=== PATIENT | female | born 1950 | race Hispanic/Latino ===

== ENCOUNTER 2017-08-19 15:07 | Inpatient (IN) | payer MEDICARE ==
[~2017-08-19] VITALS: Ht 154.9 cm; Wt 139.8 kg
[~2017-08-19 15:07] MED LIST: ASPIRIN PO; CETRIZINE PO; DULO60CA44 PO; FISH1CAP27 PO; FURO20TA4 PO; INSULIN LEVIMIR; INSULIN REGULAR; LOSA1TAB37 PO; MAGNESIUM CHLORIDE; METF10004 PO; OMEP20CA10 PO
[2017-08-19] MEDS ORDERED: ONDANSETRON HCL 4 MG/2 ML VIAL ONE (15:41)
[2017-08-19 16:03] LABS: BASOPHILS % (AUTO) 0.2 % (0.0-5.0); EOSINOPHILS % (AUTO) 0.5 % (0.0-8.0); HEMATOCRIT 31.8 % (36-48); LYMPHOCYTES % (AUTO) 6.6 % (21.0-51.0); MEAN CORPUSCULAR HEMOGLOBIN 29.1 pg (27.0-33.0); MEAN CORPUSCULAR HGB CONC 33.6 g/dL (32.0-36.0); MEAN CORPUSCULAR VOLUME 86.6 fL (79-99); MONOCYTES % (AUTO) 2.7 % (3.0-13.0); PLATELET COUNT (AUTO) 391 K/uL (130-400); RED BLOOD CELL COUNT(AUTO) 3.67 MIL/uL (4.00-5.50); RED CELL DISTRIBUTION WIDTH 18.2 % (11.0-15.5); WHITE BLOOD COUNT (AUTO) 16.4 K/uL (4.8-10.8)
[2017-08-19 16:08] LABS: CARBON DIOXIDE 27 mmol/L (21-32); CHLORIDE 101 mmol/L (101-111); CREATININE 0.9 mg/dL (0.5-1.5); GLOMERULAR FILTR. RATE CALC 66 mL/min (>60); GLUCOSE,RANDOM 189 mg/dL (70-105); POTASSIUM 4.1 mmol/L (3.5-5.1); SODIUM SERUM 138 mmol/L (136-145); UREA NITROGEN, BLOOD 16 mg/dL (7-18)
[2017-08-19 16:17] LABS: APPEARANCE,URINE Clear (CLEAR); BILIRUBIN,URINE Negative (NEGATIVE); COLOR,URINE Dark Yellow (YELLOW); GLUCOSE, URINE (UA) Negative (NEGATIVE); KETONES,URINE Negative (NEGATIVE); LEUKOCYTE ESTERASE ,URINE Trace (NEGATIVE); NITRATE,URINE Negative (NEGATIVE); OCCULT BLOOD,URINE Negative (NEGATIVE); PROTEIN,URINE Negative (NEGATIVE)
[2017-08-19 16:21] LABS: ALANINE AMINOTRANSFERASE 56 U/L (12-78); ALBUMIN 3.5 g/dL (3.5-5.0); ASPARTATE AMINOTRANSFERASE 82 U/L (10-37); BILIRUBIN,TOTAL 0.8 mg/dL (0.2-1.0); CREATINE KINASE MB < 0.5 ng/mL (0.5-3.6); CREATINE KINASE, TOTAL 101 U/L (21-232); LIPASE 85 U/L (114-286); TOTAL PROTEIN, SERUM 7.5 g/dL (6.0-8.3)
[2017-08-19 16:29] LABS: BACTERIA,URINE Few /HPF (None Seen); RBC,URINE None Seen /HPF (0-1); WBC,URINE 0-1 /HPF (0-1)
[2017-08-19] MEDS ORDERED: SODIUM CHLORIDE 0.9% 1000ML 1,000 ML IV ONE ×3 (16:29→23:41)
[2017-08-19] MEDS ORDERED: MAG HYDROX/AL HYDROX/SIMETH ES 30 ML SUSP UDCUP ONE (16:29)
[2017-08-19] MEDS ORDERED: LIDOCAINE HCL 2% VISCOUS 15 ML UDCUP ONE (16:29)
[2017-08-19] MEDS ORDERED: MORPHINE SULFATE 4 MG/1ML SYG ONE (16:29)
[2017-08-19] MEDS ORDERED: VANCOMYCIN 1GM+NS 250ML 250 ML IV ONE (17:16)
[2017-08-19] MEDS ORDERED: MEROPENEM 1 GM VIAL ONE (17:16)
[2017-08-19] MEDS ORDERED: SODIUM CHLORIDE 0.9% 1000ML 2,000 ML IV ONE (17:16)
[2017-08-19] MEDS ORDERED: ACETAMINOPHEN EXTRA STRENGTH 500 MG TABLET ONE (17:17)
[2017-08-19 17:27] LABS: INR 0.96 (0.85-1.15); PARTIAL THROMBOPLASTIN TIME 27.3 SEC (26.3-35.5); PROTHROMBIN TIME 10.1 SEC (9.6-11.6)
[2017-08-19] MEDS ORDERED: IOPAMIDOL-370 75 ML VIAL IV ONE (17:56)
[2017-08-19] MEDS ORDERED: MORPHINE SULFATE 2 MG/ML 1ML SYG IVP PRN (21:45)
[2017-08-19] MEDS: SODIUM CHLORIDE 0.9% 1000ML 1,000 ML IV SCH (21:45)
[2017-08-19] MEDS: CEFTRIAXONE SODIUM 1 GM IVP SCH (22:00)
[2017-08-20] MEDS ORDERED: SODIUM CHLORIDE 0.9% 1000ML 1,000 ML IV SCH (01:52)
[2017-08-20] MEDS ORDERED: HYDRALAZINE HCL 20 MG/ML VIAL IV PRN (02:00)
[2017-08-20] MEDS ORDERED: ACETAMINOPHEN 325 MG TAB PO PRN (02:00)
[2017-08-20] MEDS ORDERED: ONDANSETRON HCL 4 MG/2 ML VIAL IV PRN (02:00)
[2017-08-20] MEDS: SODIUM CHLORIDE 0.9% 1000ML 1,000 ML IV SCH ×3 (05:45→21:45)
[2017-08-20 06:36] LABS: BASOPHILS % (AUTO) 0.1 % (0.0-5.0); HEMATOCRIT 29.5 % (36-48); LYMPHOCYTES % (AUTO) 1.3 % (21.0-51.0); MEAN CORPUSCULAR HEMOGLOBIN 27.8 pg (27.0-33.0); MEAN CORPUSCULAR HGB CONC 32.6 g/dL (32.0-36.0); MEAN CORPUSCULAR VOLUME 85.3 fL (79-99); MONOCYTES % (AUTO) 2.3 % (3.0-13.0); NEUTROPHILS % (AUTO) 96.3 % (40.0-77.0); PLATELET COUNT (AUTO) 330 K/uL (130-400); RED BLOOD CELL COUNT(AUTO) 3.45 MIL/uL (4.00-5.50); RED CELL DISTRIBUTION WIDTH 18.2 % (11.0-15.5); WHITE BLOOD COUNT (AUTO) 20.5 K/uL (4.8-10.8)
[2017-08-20 06:47] LABS: CREATININE 0.9 mg/dL (0.5-1.5)
[2017-08-20] MEDS ORDERED: SODIUM CHLORIDE 0.9% 1000ML 1,000 ML IV ONE ×2 (08:01→14:28)
[2017-08-20] MEDS ORDERED: CLON0.5T4 PO (08:33)
[2017-08-20] MEDS ORDERED: TYL3 PO (08:33)
[2017-08-20] MEDS ORDERED: METH2.5T6 PO (08:33)
[2017-08-20] MEDS ORDERED: DOCU-132 PO (08:33)
[2017-08-20] MEDS ORDERED: LOSA25TA21 PO (08:33)
[2017-08-20] MEDS ORDERED: FOLI1TAB15 PO (08:33)
[2017-08-20] MEDS ORDERED: FERS325 PO (08:33)
[2017-08-20] MEDS ORDERED: ATOR40TA69 PO (08:33)
[2017-08-20 08:52] LABS: BASOPHILS % (AUTO) 0.2 % (0.0-5.0); HEMATOCRIT 31.6 % (36-48); LYMPHOCYTES % (AUTO) 2.1 % (21.0-51.0); MEAN CORPUSCULAR HEMOGLOBIN 27.6 pg (27.0-33.0); MEAN CORPUSCULAR VOLUME 86.2 fL (79-99); MONOCYTES % (AUTO) 1.6 % (3.0-13.0); NEUTROPHILS % (AUTO) 96.1 % (40.0-77.0); PLATELET COUNT (AUTO) 317 K/uL (130-400); RED BLOOD CELL COUNT(AUTO) 3.66 MIL/uL (4.00-5.50); RED CELL DISTRIBUTION WIDTH 18.4 % (11.0-15.5); WHITE BLOOD COUNT (AUTO) 19.8 K/uL (4.8-10.8)
[2017-08-20] MEDS ORDERED: CEFTRIAXONE 1GM/D5W 50ML 50 ML IV SCH (09:00)
[2017-08-20] MEDS ORDERED: CEFTRIAXONE SODIUM 1 GM ONE (09:02)
[2017-08-20] MEDS ORDERED: FAMOTIDINE/PF 20 MG/2 ML VIAL IV ONE (09:03)
[2017-08-20] MEDS ORDERED: ACETAMINOPHEN 325 MG TAB ONE ×2 (09:09→14:10)
[2017-08-20 10:01] LABS: B-TYPE NATRIURETIC PEPTIDE 52 pg/mL (0-100)
[2017-08-20 16:00] VITALS: BP 104/50
[2017-08-20 19:00] VITALS: BP 141/72
[2017-08-20] MEDS: FAMOTIDINE/PF 20 MG/2 ML VIAL IV SCH (21:00)
[2017-08-20 23:00] VITALS: BP 132/65
[2017-08-21 03:00] VITALS: BP 132/65
[2017-08-21 04:53] LABS: MEAN CORPUSCULAR HEMOGLOBIN 28.7 pg (27.0-33.0); MEAN CORPUSCULAR HGB CONC 33.5 g/dL (32.0-36.0); MEAN CORPUSCULAR VOLUME 85.6 fL (79-99); PLATELET COUNT (AUTO) 294 K/uL (130-400); RED BLOOD CELL COUNT(AUTO) 3.39 MIL/uL (4.00-5.50); RED CELL DISTRIBUTION WIDTH 18.6 % (11.0-15.5); WHITE BLOOD COUNT (AUTO) 11.2 K/uL (4.8-10.8)
[2017-08-21 05:07] LABS: CREATININE 0.9 mg/dL (0.5-1.5); POTASSIUM 3.8 mmol/L (3.5-5.1)
[2017-08-21 05:10] LABS: BAND NEUTROPHILS % (MANUAL) 9 % (0-2); LYMPHOCYTES % (MANUAL) 13 % (22-44); MAN.DIFF COMMENT-IMPRESSION MANUAL DIFFERENTIAL; SEGMENTED NEUTROPHILS % 78 % (40-70)
[2017-08-21 05:11] LABS: PLATELET MORPHOLOGY COMMENT ADEQUATE
[2017-08-21] MEDS: SODIUM CHLORIDE 0.9% 1000ML 1,000 ML IV SCH ×3 (05:45→21:09)
[2017-08-21 08:00] VITALS: BP 148/62
[2017-08-21] MEDS: FAMOTIDINE/PF 20 MG/2 ML VIAL IV SCH ×2 (08:10→20:40)
[2017-08-21] MEDS ORDERED: FUROSEMIDE 10 MG/ML 4ML VIAL IV SCH (11:45)
[2017-08-21 12:00] VITALS: BP 135/62
[2017-08-21] MEDS ORDERED: MAG HYDROX/AL HYDROX/SIMETH ES 30 ML SUSP UDCUP PO SCH (12:15)
[2017-08-21] MEDS ORDERED: KETOROLAC TROMETHAMINE 30MG/ML IV SCH (12:15)
[2017-08-21] MEDS: IPRATROPIUM/ALBUTEROL SULFATE 3 ML SOLUTION IH PRN ×3 (13:48→23:33)
[2017-08-21 16:00] VITALS: BP 140/74
[2017-08-21] MEDS: CEFTRIAXONE SODIUM 1 GM IVP SCH (16:14)
[2017-08-21] MEDS: CEFTRIAXONE SODIUM 1 GM IV SCH (17:09)
[2017-08-21 19:20] VITALS: BP 153/65
[2017-08-22] VITALS (7 sets, daily range): BP systolic 120–162; BP diastolic 57–86
[2017-08-22] MEDS: CEFTRIAXONE SODIUM 1 GM IV SCH ×2 (04:14→16:35)
[2017-08-22] MEDS: SODIUM CHLORIDE 0.9% 1000ML 1,000 ML IV SCH ×2 (05:45→10:32)
[2017-08-22] MEDS: FAMOTIDINE/PF 20 MG/2 ML VIAL IV SCH ×2 (10:21→21:18)
[2017-08-22] MEDS: PANTOPRAZOLE SODIUM 40 MG TABLET.DR PO SCH (10:21)
[2017-08-22] MEDS: FUROSEMIDE 10 MG/ML 2ML VIAL IV SCH (12:56)
[2017-08-22] MEDS: INSULIN HUMULIN R 100 UNIT/ML 3ML SQ SCH ×2 (16:56→21:18)
[2017-08-22] MEDS: IPRATROPIUM/ALBUTEROL SULFATE 3 ML SOLUTION IH PRN ×2 (19:53→23:42)
[2017-08-22] MEDS: INSULIN GLARGINE 100 UNITS/ML 10 ML VIAL SQ SCH (21:16)
[2017-08-22] MEDS: DOCUSATE SODIUM 100 MG CAP PO SCH (21:18)
[2017-08-22] MEDS: ACETAMINOPHEN-CODEINE 300/30MG TAB PO SCH (21:33)
[2017-08-23] MEDS: FUROSEMIDE 10 MG/ML 2ML VIAL IV SCH ×2 (01:00→12:35)
[2017-08-23 04:00] VITALS: BP 134/71
[2017-08-23] MEDS: CEFTRIAXONE SODIUM 1 GM IV SCH ×2 (05:10→16:24)
[2017-08-23] MEDS: INSULIN HUMULIN R 100 UNIT/ML 3ML SQ SCH ×4 (06:10→21:14)
[2017-08-23] MEDS: PANTOPRAZOLE SODIUM 40 MG TABLET.DR PO SCH (06:38)
[2017-08-23] MEDS: IPRATROPIUM/ALBUTEROL SULFATE 3 ML SOLUTION IH PRN ×3 (06:38→18:41)
[2017-08-23 08:00] VITALS: BP 136/53
[2017-08-23] MEDS: FAMOTIDINE/PF 20 MG/2 ML VIAL IV SCH ×2 (08:49→19:50)
[2017-08-23] MEDS: LOSARTAN 50 MG TABLET PO SCH (08:49)
[2017-08-23] MEDS: DOCUSATE SODIUM 100 MG CAP PO SCH ×2 (08:49→19:50)
[2017-08-23] MEDS: FOLIC ACID 1 MG TABLET PO SCH (08:49)
[2017-08-23] MEDS: DULOXETINE HCL 30 MG CAP PO SCH (08:49)
[2017-08-23] MEDS: ACETAMINOPHEN-CODEINE 300/30MG TAB PO SCH ×2 (08:50→19:51)
[2017-08-23] MEDS: CLONAZEPAM 0.5 MG TABLET PO SCH (08:50)
[2017-08-23] MEDS: FERROUS FUMARATE 324 MG TABLET PO SCH (08:57)
[2017-08-23 11:35] VITALS: BP 142/91
[2017-08-23 16:00] VITALS: BP 146/67
[2017-08-23 19:00] VITALS: BP 156/76
[2017-08-23] MEDS: ATORVASTATIN CALCIUM 40 MG TABLET PO SCH (19:50)
[2017-08-23] MEDS: INSULIN GLARGINE 100 UNITS/ML 10 ML VIAL SQ SCH (21:15)
[2017-08-24] VITALS (7 sets, daily range): BP systolic 105–149; BP diastolic 54–78
[2017-08-24] MEDS: FUROSEMIDE 10 MG/ML 2ML VIAL IV SCH ×2 (00:23→12:15)
[2017-08-24] MEDS: CEFTRIAXONE SODIUM 1 GM IV SCH ×2 (04:47→12:15)
[2017-08-24 05:33] LABS: BASOPHILS % (AUTO) 0.6 % (0.0-5.0); EOSINOPHILS % (AUTO) 2.1 % (0.0-8.0); HEMATOCRIT 30.1 % (36-48); LYMPHOCYTES % (AUTO) 11.9 % (21.0-51.0); MEAN CORPUSCULAR HEMOGLOBIN 27.9 pg (27.0-33.0); MEAN CORPUSCULAR HGB CONC 33.4 g/dL (32.0-36.0); MEAN CORPUSCULAR VOLUME 83.4 fL (79-99); MONOCYTES % (AUTO) 9.7 % (3.0-13.0); NEUTROPHILS % (AUTO) 75.7 % (40.0-77.0); PLATELET COUNT (AUTO) 306 K/uL (130-400); RED BLOOD CELL COUNT(AUTO) 3.61 MIL/uL (4.00-5.50); RED CELL DISTRIBUTION WIDTH 18.3 % (11.0-15.5); WHITE BLOOD COUNT (AUTO) 8.8 K/uL (4.8-10.8)
[2017-08-24 06:03] LABS: ALBUMIN 2.5 g/dL (3.5-5.0); CREATININE 0.8 mg/dL (0.5-1.5); TOTAL PROTEIN, SERUM 6.5 g/dL (6.0-8.3)
[2017-08-24 06:10] LABS: POTASSIUM 2.7 mmol/L (3.5-5.1)
[2017-08-24] MEDS ORDERED: POTASSIUM CHLORIDE 20 MEQ ERTAB PO ONE (06:20)
[2017-08-24] MEDS ORDERED: LIDOCAINE HCL-MPF 1% 2ML VIAL ONE (06:20)
[2017-08-24] MEDS ORDERED: POTASSIUM CHLORIDE 20MEQ/100ML 100 ML IV ONE (06:21)
[2017-08-24] MEDS ORDERED: POTASSIUM CHLORIDE 20 MEQ ERTAB PO PRN (06:30)
[2017-08-24] MEDS: LIDOCAINE HCL-MPF 1% 2ML VIAL IVP PRN (06:32)
[2017-08-24] MEDS: POTASSIUM CHLORIDE 20MEQ/100ML 100 ML IV PRN (06:32)
[2017-08-24] MEDS: INSULIN HUMULIN R 100 UNIT/ML 3ML SQ SCH ×4 (06:40→20:45)
[2017-08-24] MEDS: PANTOPRAZOLE SODIUM 40 MG TABLET.DR PO SCH (06:47)
[2017-08-24] MEDS: IPRATROPIUM/ALBUTEROL SULFATE 3 ML SOLUTION IH PRN ×2 (07:34→21:53)
[2017-08-24] MEDS: FAMOTIDINE/PF 20 MG/2 ML VIAL IV SCH ×2 (10:02→20:06)
[2017-08-24] MEDS: POTASSIUM CHLORIDE 10% ELIXIR 20 MEQ/15 ML UDCUP PO PRN ×3 (10:02→15:09)
[2017-08-24] MEDS: CLONAZEPAM 0.5 MG TABLET PO SCH (10:02)
[2017-08-24] MEDS: LOSARTAN 50 MG TABLET PO SCH (10:03)
[2017-08-24] MEDS: FOLIC ACID 1 MG TABLET PO SCH (10:03)
[2017-08-24] MEDS: DOCUSATE SODIUM 100 MG CAP PO SCH ×2 (10:03→20:06)
[2017-08-24] MEDS: FERROUS FUMARATE 324 MG TABLET PO SCH (10:03)
[2017-08-24] MEDS: DULOXETINE HCL 30 MG CAP PO SCH (10:03)
[2017-08-24] MEDS: ACETAMINOPHEN-CODEINE 300/30MG TAB PO SCH ×2 (10:04→20:07)
[2017-08-24] MEDS ORDERED: CEFTRIAXONE SODIUM 1 GM IVP ONE (11:50)
[2017-08-24] MEDS: ATORVASTATIN CALCIUM 40 MG TABLET PO SCH (20:06)
[2017-08-24] MEDS: INSULIN GLARGINE 100 UNITS/ML 10 ML VIAL SQ SCH (20:56)
[2017-08-25] MEDS: FUROSEMIDE 10 MG/ML 2ML VIAL IV SCH ×2 (01:00→12:11)
[2017-08-25 04:00] VITALS: BP 122/61
[2017-08-25] MEDS: CEFTRIAXONE SODIUM 1 GM IV SCH (04:43)
[2017-08-25 06:31] LABS: HEMATOCRIT 29.2 % (36-48); MEAN CORPUSCULAR HEMOGLOBIN 28.9 pg (27.0-33.0); MEAN CORPUSCULAR HGB CONC 34.7 g/dL (32.0-36.0); MEAN CORPUSCULAR VOLUME 83.2 fL (79-99); NUCLEATED RED BLOOD CELLS 0.2 % (0.0-0.19); PLATELET COUNT (AUTO) 337 K/uL (130-400); RED BLOOD CELL COUNT(AUTO) 3.51 MIL/uL (4.00-5.50); RED CELL DISTRIBUTION WIDTH 18.5 % (11.0-15.5); WHITE BLOOD COUNT (AUTO) 10.1 K/uL (4.8-10.8)
[2017-08-25 06:43] LABS: ALBUMIN 2.4 g/dL (3.5-5.0); CREATININE 0.9 mg/dL (0.5-1.5); POTASSIUM 3.3 mmol/L (3.5-5.1); TOTAL PROTEIN, SERUM 6.5 g/dL (6.0-8.3)
[2017-08-25] MEDS: INSULIN HUMULIN R 100 UNIT/ML 3ML SQ SCH ×2 (06:44→11:41)
[2017-08-25] MEDS: PANTOPRAZOLE SODIUM 40 MG TABLET.DR PO SCH (06:44)
[2017-08-25] MEDS: LIDOCAINE HCL-MPF 1% 2ML VIAL IVP PRN (06:56)
[2017-08-25] MEDS: POTASSIUM CHLORIDE 20MEQ/100ML 100 ML IV PRN (06:56)
[2017-08-25 07:30] VITALS: BP 138/65
[2017-08-25] MEDS: FAMOTIDINE/PF 20 MG/2 ML VIAL IV SCH (08:38)
[2017-08-25] MEDS: DULOXETINE HCL 30 MG CAP PO SCH (08:39)
[2017-08-25] MEDS: CLONAZEPAM 0.5 MG TABLET PO SCH (08:39)
[2017-08-25] MEDS: FOLIC ACID 1 MG TABLET PO SCH (08:47)
[2017-08-25] MEDS: LOSARTAN 50 MG TABLET PO SCH (08:47)
[2017-08-25] MEDS: DOCUSATE SODIUM 100 MG CAP PO SCH (08:47)
[2017-08-25] MEDS: ACETAMINOPHEN-CODEINE 300/30MG TAB PO SCH (08:47)
[2017-08-25] MEDS: FERROUS FUMARATE 324 MG TABLET PO SCH (08:48)
[2017-08-25 11:46] VITALS: BP 121/68
[2017-08-25] MEDS ORDERED: ACETAMINOPHEN-CODEINE 300/30MG TAB PO PRN (13:00)
== END 2017-08-25 17:00 | disposition home or self-care (01) | DRG 872 ==
LOC: EDH 15:07 → EDHIP 21:15 → 3CH 08-20 16:10
PROVIDERS: ADMIT Family Medicine; ATTEND Family Medicine
DX: A41.9 Sepsis, unspecified organism (principal); E87.2 Acidosis; E66.01 Morbid (severe) obesity due to excess calories; B96.20 Unspecified Escherichia coli [E. coli] as the cause of diseases classified elsewhere; D64.9 Anemia, unspecified; E11.9 Type 2 diabetes mellitus without complications; Z68.43 Body mass index [BMI] 50.0-59.9, adult; K52.9 Noninfective gastroenteritis and colitis, unspecified; Z74.01 Bed confinement status; B96.89 Other specified bacterial agents as the cause of diseases classified elsewhere; E78.5 Hyperlipidemia, unspecified; G47.33 Obstructive sleep apnea (adult) (pediatric); I10 Essential (primary) hypertension; K21.9 Gastro-esophageal reflux disease without esophagitis; K29.70 Gastritis, unspecified, without bleeding; L40.9 Psoriasis, unspecified; Z88.8 Allergy status to other drugs, medicaments and biological substances; Z90.710 Acquired absence of both cervix and uterus; Z79.4 Long term (current) use of insulin
CPT/HCPCS: 36415; 71045; 74177; 80048; 80053; 81001; 82550; 82553; 82948; 83605; 83690; 83880; 84132; 84484; 85025; 85027; 85610; 85730; 87040; 87088; 87186; 87804; 93005; 94640; 94664; A4218; J0696; J1815; J1885; J1940; J2185; J2270; J2405; J3370; J3480; J3490; J7030; Q9967

== ENCOUNTER 2017-09-03 12:03 | Observation (INO) | payer MEDICARE ==
[~2017-09-03] VITALS: Ht 154.9 cm; Wt 143.0 kg
[~2017-09-03 12:03] MED LIST changes: +ATOR40TA69 PO; +CLON0.5T12 PO; +DOCU-132 PO; +FERS325 PO; -FISH1CAP27 PO; +FOLI1TAB15 PO; -LOSA1TAB37 PO; +LOSA25TA21 PO; -MAGNESIUM CHLORIDE; -OMEP20CA10 PO; +TYL3 PO
[2017-09-03 13:01] LABS: BASOPHILS % (AUTO) 0.4 % (0.0-5.0); EOSINOPHILS % (AUTO) 1.2 % (0.0-8.0); HEMATOCRIT 30.5 % (36-48); LYMPHOCYTES % (AUTO) 17.1 % (21.0-51.0); MEAN CORPUSCULAR HEMOGLOBIN 28.4 pg (27.0-33.0); MEAN CORPUSCULAR HGB CONC 33.2 g/dL (32.0-36.0); MEAN CORPUSCULAR VOLUME 85.6 fL (79-99); MONOCYTES % (AUTO) 8.6 % (3.0-13.0); NEUTROPHILS % (AUTO) 72.7 % (40.0-77.0); PLATELET COUNT (AUTO) 447 K/uL (130-400); RED BLOOD CELL COUNT(AUTO) 3.56 MIL/uL (4.00-5.50); RED CELL DISTRIBUTION WIDTH 18.9 % (11.0-15.5); WHITE BLOOD COUNT (AUTO) 7.7 K/uL (4.8-10.8)
[2017-09-03 13:10] LABS: CREATININE 1.1 mg/dL (0.5-1.5); POTASSIUM 4.5 mmol/L (3.5-5.1)
[2017-09-03 13:15] LABS: ALBUMIN 2.9 g/dL (3.5-5.0); BILIRUBIN,TOTAL 0.9 mg/dL (0.2-1.0); TOTAL PROTEIN, SERUM 7.3 g/dL (6.0-8.3)
[2017-09-03] MEDS ORDERED: SODIUM CHLORIDE 0.9% 1000ML 1,000 ML IV ONE ×2 (13:20→19:44)
[2017-09-03] MEDS ORDERED: MEROPENEM 1 GM VIAL ONE (13:20)
[2017-09-03] MEDS ORDERED: VANCOMYCIN 1GM+NS 250ML 250 ML IV ONE (13:20)
[2017-09-03] MEDS ORDERED: ACETAMINOPHEN 325 MG TAB ONE (13:20)
[2017-09-03] MEDS ORDERED: SODIUM CHLORIDE 0.9% 50 ML IV ONE (13:21)
[2017-09-03 13:54] LABS: APPEARANCE,URINE Clear (CLEAR); BILIRUBIN,URINE Negative (NEGATIVE); COLOR,URINE Yellow (YELLOW); GLUCOSE, URINE (UA) Negative (NEGATIVE); KETONES,URINE Negative (NEGATIVE); LEUKOCYTE ESTERASE ,URINE Negative (NEGATIVE); NITRATE,URINE Negative (NEGATIVE); OCCULT BLOOD,URINE Negative (NEGATIVE); PROTEIN,URINE Negative (NEGATIVE)
[2017-09-03] MEDS ORDERED: ENOXAPARIN SODIUM 40 MG/0.4 ML SYRINGE SQ ONE (19:44)
[2017-09-03 21:46] VITALS: BP 134/61
[2017-09-03 23:30] VITALS: BP 123/56
[2017-09-04] MEDS ORDERED: SODIUM CHLORIDE 0.9% 1000ML 1,000 ML IV SCH (02:45)
[2017-09-04] MEDS ORDERED: HYDRALAZINE HCL 20 MG/ML VIAL IV PRN (02:45)
[2017-09-04] MEDS ORDERED: ACETAMINOPHEN 325 MG TAB PO PRN ×2 (02:45)
[2017-09-04] MEDS ORDERED: METOPROLOL TARTRATE 1 MG/ML 5ML VIAL IV PRN (02:45)
[2017-09-04] MEDS ORDERED: ONDANSETRON HCL MDV 20ML 2 MG/ML VIAL IVP PRN (02:45)
[2017-09-04 03:38] VITALS: BP 125/69
[2017-09-04 04:22] LABS: MEAN CORPUSCULAR HEMOGLOBIN 28.7 pg (27.0-33.0); MEAN CORPUSCULAR HGB CONC 33.7 g/dL (32.0-36.0); PLATELET COUNT (AUTO) 448 K/uL (130-400); RED BLOOD CELL COUNT(AUTO) 3.41 MIL/uL (4.00-5.50); RED CELL DISTRIBUTION WIDTH 18.6 % (11.0-15.5); WHITE BLOOD COUNT (AUTO) 5.5 K/uL (4.8-10.8)
[2017-09-04 04:36] LABS: CREATININE 0.9 mg/dL (0.5-1.5); POTASSIUM 4.2 mmol/L (3.5-5.1)
[2017-09-04] MEDS ORDERED: MEROPENEM 500MG+NS 50ML 50 ML IV SCH (05:15)
[2017-09-04] MEDS: MEROPENEM 500 MG VIAL IVP SCH ×2 (05:27→17:38)
[2017-09-04 07:00] VITALS: BP 147/67
[2017-09-04] MEDS: ENOXAPARIN SODIUM 40 MG/0.4 ML SYRINGE SQ SCH (09:29)
[2017-09-04 11:00] VITALS: BP 142/72
[2017-09-04 15:00] VITALS: BP 139/57
[2017-09-04] MEDS ORDERED: MECLIZINE HCL 25 MG TABLET PO PRN (15:30)
[2017-09-04 20:00] VITALS: BP 160/77
[2017-09-04] MEDS ORDERED: GABAPENTIN 100 MG CAPSULE PO SCH (21:00)
[2017-09-04] MEDS: DOCUSATE SODIUM 100 MG CAP PO SCH (22:13)
[2017-09-04] MEDS ORDERED: GLUCAGON 1MG KIT 1 MG ML IM PRN (22:15)
[2017-09-04] MEDS ORDERED: DEXTROSE 50%-WATER 50 ML DISP.SYRIN IV PRN (22:15)
[2017-09-04 23:49] VITALS: BP 130/80
[2017-09-04] MEDS: INSULIN HUMULIN R 100 UNIT/ML 3ML SQ SCH (23:55)
[2017-09-05] MEDS: MEROPENEM 500 MG VIAL IVP SCH ×2 (01:55→07:56)
[2017-09-05 03:52] VITALS: BP 122/57
[2017-09-05 07:00] VITALS: BP 146/73
[2017-09-05] MEDS ORDERED: INSULIN HUMULIN R 100 UNIT/ML 3ML SQ SCH (07:30)
[2017-09-05] MEDS: INSULIN HUMULIN R 100 UNIT/ML 3ML SQ SCH (08:01)
[2017-09-05] MEDS ORDERED: CLONAZEPAM 0.5 MG TABLET PO SCH (09:00)
[2017-09-05] MEDS: ENOXAPARIN SODIUM 40 MG/0.4 ML SYRINGE SQ SCH (09:00)
[2017-09-05] MEDS ORDERED: FERROUS SULFATE 325 MG TABLET.DR PO SCH (09:00)
[2017-09-05] MEDS ORDERED: LOSARTAN 50 MG TABLET PO SCH (09:00)
[2017-09-05] MEDS ORDERED: ATORVASTATIN CALCIUM 40 MG TABLET PO SCH (09:00)
[2017-09-05] MEDS ORDERED: FOLIC ACID 1 MG TABLET PO SCH (09:00)
[2017-09-05] MEDS: DOCUSATE SODIUM 100 MG CAP PO SCH (09:43)
== END 2017-09-05 11:13 | disposition home or self-care (01) ==
LOC: EDH 12:03 → EDHIP 17:25 → INTOOBSV 17:25 → OBSVTOIN 17:25 → 3DH 19:46
PROVIDERS: ADMIT Internal Medicine Nephrology; ATTEND Internal Medicine Nephrology
DX: L03.116 Cellulitis of left lower limb (principal); E11.40 Type 2 diabetes mellitus with diabetic neuropathy, unspecified; Z79.4 Long term (current) use of insulin; R00.0 Tachycardia, unspecified; I10 Essential (primary) hypertension; G47.30 Sleep apnea, unspecified; E66.01 Morbid (severe) obesity due to excess calories; E78.5 Hyperlipidemia, unspecified
CPT/HCPCS: 36415 ×2; 71045; 80048; 80053; 81003; 82948 ×5; 83605 ×2; 84484; 85025; 85027; 87040 ×2; 87804 ×2; 93005; 96361; 96372 ×2; 96374; 96376 ×2; 99285; A4218 ×3; G0378 ×42; J1650 ×2; J1815; J2185 ×6; J3370; J7030 ×2

== ENCOUNTER → 2017-11-26 | Outpatient (CLI) | payer MEDICARE ==
[~2017-11-26] MED LIST changes: -TYL3 PO
== END | disposition home or self-care (01) ==
LOC: RAH 13:35
PROVIDERS: ATTEND Internal Medicine
DX: L40.50 Arthropathic psoriasis, unspecified (principal); M16.11 Unilateral primary osteoarthritis, right hip; M47.896 Other spondylosis, lumbar region
CPT/HCPCS: 72100; 73502

== ENCOUNTER → 2018-10-02 | Outpatient (CLI) | payer MEDICARE ==
[~2018-10-02] MED LIST changes: -LOSA25TA21 PO; +LOSA25TA41 PO; +METF-446 PO; -METF10004 PO
== END | disposition home or self-care (01) ==
LOC: RAH 13:15
PROVIDERS: ATTEND Internal Medicine
DX: M16.12 Unilateral primary osteoarthritis, left hip (principal); L40.50 Arthropathic psoriasis, unspecified
CPT/HCPCS: 73502

== ENCOUNTER 2018-10-03 14:00 | Emergency (ER) | payer MEDICARE ==
[2018-10-03 14:29] LABS: APPEARANCE,URINE Clear (CLEAR); BILIRUBIN,URINE Negative (NEGATIVE); COLOR,URINE Yellow (YELLOW); GLUCOSE, URINE (UA) Negative (NEGATIVE); KETONES,URINE Negative (NEGATIVE); LEUKOCYTE ESTERASE ,URINE Small (NEGATIVE); NITRATE,URINE Negative (NEGATIVE); OCCULT BLOOD,URINE Negative (NEGATIVE); PROTEIN,URINE Negative (NEGATIVE); UROBILINOGEN,URINE 0.2 mg/dL (0.2-1.0)
[2018-10-03 14:48] LABS: RBC,URINE 0-1 /HPF (0-1)
[2018-10-03 14:49] LABS: BACTERIA,URINE Rare /HPF (None Seen); SQUAMOUS EPITHELIAL CELL,UR Few /HPF (0-2)
[2018-10-03] MEDS ORDERED: ONDANSETRON ODT 4 MG TAB ONE (16:24)
[2018-10-03] MEDS ORDERED: HYDROMORPHONE 1 MG/1 ML AMP ONE (16:24)
== END 2018-10-03 17:09 | disposition home or self-care (01) ==
LOC: EDH 14:00
DX: M54.5 Low back pain (principal); E11.9 Type 2 diabetes mellitus without complications; E78.5 Hyperlipidemia, unspecified; I10 Essential (primary) hypertension; Z88.6 Allergy status to analgesic agent; Z88.8 Allergy status to other drugs, medicaments and biological substances; Z79.4 Long term (current) use of insulin
CPT/HCPCS: 74176; 81001; 96372; 99285; J1170

== ENCOUNTER → 2018-11-23 | Outpatient (CLI) | payer MEDICARE | END | disposition home or self-care (01) | LOC: RAH 13:17 | PROVIDERS: ATTEND Internal Medicine | DX: R91.1 Solitary pulmonary nodule (principal); I11.9 Hypertensive heart disease without heart failure; J98.11 Atelectasis; M47.815 Spondylosis without myelopathy or radiculopathy, thoracolumbar region | CPT/HCPCS: 71250 ==

== ENCOUNTER 2018-12-14 12:09 | Emergency (ER) | payer MEDICARE ==
[2018-12-14 12:45] LABS: APPEARANCE,URINE CLEAR (CLEAR); BILIRUBIN,URINE NEGATIVE (NEGATIVE); COLOR,URINE YELLOW (YELLOW); GLUCOSE, URINE (UA) NEGATIVE (NEGATIVE); KETONES,URINE NEGATIVE (NEGATIVE); LEUKOCYTE ESTERASE ,URINE SMALL (NEGATIVE); NITRATE,URINE NEGATIVE (NEGATIVE); OCCULT BLOOD,URINE NEGATIVE (NEGATIVE); PROTEIN,URINE NEGATIVE (NEGATIVE); UROBILINOGEN,URINE 0.2 mg/dL (0.2-1.0)
[2018-12-14 13:04] LABS: BACTERIA,URINE Rare /HPF (None Seen); RBC,URINE 0-1 /HPF (0-1); SQUAMOUS EPITHELIAL CELL,UR Rare /HPF (0-2)
[2018-12-14 13:38] LABS: BASOPHILS % (AUTO) 0.7 % (0.0-5.0); EOSINOPHILS % (AUTO) 0.6 % (0.0-8.0); HEMATOCRIT 31.8 % (36-48); MEAN CORPUSCULAR HEMOGLOBIN 28.7 pg (27.0-33.0); MEAN CORPUSCULAR HGB CONC 32.4 g/dL (32.0-36.0); MEAN CORPUSCULAR VOLUME 88.4 fL (79-99); MONOCYTES % (AUTO) 5.3 % (3.0-13.0); NEUTROPHILS % (AUTO) 81.4 % (40.0-77.0); NUCLEATED RED BLOOD CELLS 0.1 % (0.0-0.19); PLATELET COUNT (AUTO) 484 K/uL (130-400); RED CELL DISTRIBUTION WIDTH 18.2 % (11.0-15.5); WHITE BLOOD COUNT (AUTO) 12.1 K/uL (4.8-10.8)
[2018-12-14 13:43] LABS: CREATININE 0.8 mg/dL (0.5-1.5); POTASSIUM 4.6 mmol/L (3.5-5.1)
[2018-12-14] MEDS ORDERED: KETOROLAC TROMETHAMINE 60 MG/2 ML VIAL ONE (14:11)
[2018-12-14] MEDS ORDERED: ORPHENADRINE CITRATE 30 MG/ML ML ONE ×2 (14:11→14:12)
== END 2018-12-14 14:40 | disposition home or self-care (01) ==
LOC: EDH 12:09
DX: M62.830 Muscle spasm of back (principal); I10 Essential (primary) hypertension; E78.5 Hyperlipidemia, unspecified; E11.9 Type 2 diabetes mellitus without complications; Z88.6 Allergy status to analgesic agent; Z88.8 Allergy status to other drugs, medicaments and biological substances; Z90.710 Acquired absence of both cervix and uterus; Z98.890 Other specified postprocedural states
CPT/HCPCS: 36415; 74176; 80048; 81001; 85025; 96374; 96375; 99285; J1885; J2360 ×2

== ENCOUNTER 2020-07-17 17:00 | Emergency (ER) | payer MEDICARE ==
[~2020-07-17 17:00] MED LIST changes: -CLON0.5T12 PO; +CLON0.5T4 PO
[2020-07-17] MEDS ORDERED: NOREPINEPHRINE 4MG/NS 250ML 0 ML IV ONE (17:35)
== END 2020-07-17 19:08 | disposition expired ==
LOC: EDH 17:00
DX: U07.1 COVID-19 (principal); I46.9 Cardiac arrest, cause unspecified; J18.9 Pneumonia, unspecified organism; R00.1 Bradycardia, unspecified; E11.9 Type 2 diabetes mellitus without complications; E78.5 Hyperlipidemia, unspecified; I10 Essential (primary) hypertension; Z90.49 Acquired absence of other specified parts of digestive tract; Z90.710 Acquired absence of both cervix and uterus; Z88.8 Allergy status to other drugs, medicaments and biological substances; Z88.5 Allergy status to narcotic agent; Z88.6 Allergy status to analgesic agent
CPT/HCPCS: 31500; 71045; 92950; 94002; 99291; J3490